=== PATIENT | male | born 1965 | race Caucasian/White ===

== ENCOUNTER → 2024-02-20 | Outpatient (CLI) | payer BC, SELFPAY ==
[2024-02-20 15:56] LABS: Absolute Lymphocyte Count 1.77 X10^3/uL (0.83-4.51); Absolute Neutrophil Count 5.7 X10^3/uL (2.0-7.7); Basophil# 0.04 X10^3/uL; Basophil% 0.5 % (0-1); Eosinophil# 0.05 X10^3/uL; Eosinophils% 0.6 % (0-5); Hematocrit 48.4 % (40-54); Hemoglobin 16.1 g/dL (13.0-16.5); Lymphocyte # 1.77 X10^3/ul (0.83-4.51); Lymphocyte % 21.8 % (19-41); Mean Corp Hgb Conc 33.3 g/dL (32-36); Mean Corpuscular Hgb 28.5 pg (27.0-32.0); Mean Corpuscular Volume 85.8 fL (80-94); Mean Platelet Vol. 10.7 fl (6.2-12.0); Monocyte# 0.56 X10^3/uL; Monocyte% 6.9 % (0-10); NRBC Flagged by Analyzer 0 % (0-5); Neutrophil # 5.68 X10^3/uL (2.7-7.7); Neutrophil % 69.8 % (47-70); Platelet Count 301 K/mm3 (150-450); RBC Distribution Width CV 13.5 % (11.6-14.6); RBC Distribution Width SD 41.6 fl (35.1-43.9); Red Blood Count 5.64 M/mm3 (4.6-6.2); White Blood Count 8.1 K/mm3 (4.4-11.0)
[2024-02-20 16:51] LABS: ALB/GLOB Ratio 1.1 RATIO (0.9-2.4); AST(SGOT) 21 U/L (15-37); Alanine Aminotransfer ALT/SGPT 35 U/L (16-61); Alkaline Phosphatase 101 U/L (45-117); Anion Gap 5 (5-15); BUN 10 mg/dL (7-18); BUN/Creat Ratio 12.6 RATIO (10-20); Calcium,Total 8.9 mg/dL (8.5-10.1); Chloride 108 mmol/L (98-107); Cholesterol 205 mg/dL (200); Creatinine, Serum 0.79 mg/dL (0.70-1.30); EST Glomerular Filtration Rate 106 mL/min (>60); Est Glom Filt Rate - Afr Amer 128 mL/min (>60); Globulin 3.5 g/dL (2.2-4.2); Glucose 93 mg/dL (74-106); High Density Lipoprotein 47 mg/dL; Protein, Total 7.5 g/dL (6.4-8.2); Sodium Level 137 mmol/L (136-145); Triglycerides 219 mg/dL; Very Low Density Lipoprotein 44 mg/dL (5-40)
[2024-02-20 20:38] LABS: Vitamin D,25 Hydroxy 10.2 ng/mL
== END | disposition home or self-care (01) ==
PROVIDERS: PCP Family Medicine; Referring Provider Family Medicine; Visit Provider Family Medicine
DX: I10 Essential (primary) hypertension (principal); E78.5 Hyperlipidemia, unspecified; R53.83 Other fatigue
CPT/HCPCS: 36415; 80053; 80061; 82306; 84403; 84443; 85025

== ENCOUNTER → 2024-05-23 | Outpatient (CLI) | payer BC, SELFPAY ==
[2024-05-23 18:33] LABS: PSA,Total - Annual Screen 2.54 ng/mL (0.02-4.00)
== END | disposition home or self-care (01) ==
LOC: MFPLAB 14:36
PROVIDERS: PCP Family Medicine; Referring Provider Family Medicine; Visit Provider Family Medicine
DX: E03.9 Hypothyroidism, unspecified (principal); Z12.5 Encounter for screening for malignant neoplasm of prostate
CPT/HCPCS: 36415; 84153; 84443; G0103

== ENCOUNTER → 2024-09-07 | Outpatient (CLI) | payer BC, SELFPAY ==
[2024-09-07 18:42] LABS: Vitamin D,25 Hydroxy 46.0 ng/mL (30-100)
--- OUTSIDE RECORDS SUMMARY | 2024-09-07 19:31 | XMS RPT_ITS | CCD ---
Author Organization [facility] Care Team Providers Care Lease Analyst Name Role Phone Kasandra Murray MD Primary Care Provider [phone] Kasandra Murray MD Attending Provider Kasandra Murray MD Referring Provider Kasandra Murray Referring Unavailable Kasandra Murray Primary Care Unavailable Kasandra Murray Attending Unavailable Kasandra Murray Referring Unavailable Kasandra Murray Primary Care Unavailable Kasandra Murray Attending Unavailable Allergies Allergy Classification Reported Allergen(s) Allergy Type Date of Onset Reaction(s) Facility (1 source) Penicillins; Translations: [PENICILLINS] Propensity to adverse reactions to drug (disorder) [facility] [place] Other [place] Repository Problems Problem Classification Problem Date Documented Da te Episodic/Chronic Essential hypertension (1 source) Essential (primary) hypertension; Translations: [Essential (primary) hypertension] Onset: 03-12-2024 Chronic Genitourinary symptoms and ill-defined conditions (2 sources) Gross hematuria; Translations: [Retention of urine, unspecified] Onset: 12-21-2017 Episodic Residual codes; unclassified (1 source) Personal history of other medical treatment; Translations: [Personal history of other medical treatment] Onset: 12-21-2017 Episodic Thyroid disorders (1 source) Hypothyroidism, unspecified; Translations: [Hypothyroidism, unspecified] Onset: 05-28-2024 Chronic Results Test Name Value Interpretation Reference Range Facility PSA, total screeningOrdered By: Kasandra Murray on 05-23-2024 Prostate Specific Antigen Screen 2.54 ng/mL 0.02-4.00 [facility] Comment on above: This test was perfor med using the [employer] tPSA method. Measured values of a patient sample can vary depending on the testing procedure used. PSA values determined on patient samples by different testing procedures cannot be used interchangeably. If there is a change in PSA assays while monitoring therapy, sequential testing should be performed to confirm baseline values. PSA,Total - Annual Screenon 05-23-2024 PSA,TOT SCREEN 2.54 ng/mL Normal 0.02-4.00 [facility] Comment on above: Order Comment: Order Date: 03/08/24 Order Info: [id number] - TSH Order Info: [id number] - PSA Result Comment: This test was performed using the [employer] tPSA method. Measured values of a patient??sample can vary depending on the testing procedure used. PSA values determined on patient samples by different testing procedures cannot be used interchangeably. If there is a change in PSA assays while monitoring therapy, sequential testing should be performed to confirm baseline values. Performed By: #### L 501.9520, L501.9910 #### [facility] [address] [place], [place], [address] TSH DL <= 0.005 mIU/L QnOrde red By: Kasandra Murray on 05-23-2024 Thyroid Stimulating Hormone (TSH) 4.110 uIU/mL 0.300-4.200 [facility] Thyroid Stim Hormone (TSH)on 05-23-2024 TSH 4.110 uIU/mL Normal 0.300-4.200 [facility] Comment on above: Order Comment: Order Date: 03/08/24 Order Info: [id number] - TSH Order Info: [id number] - PSA Performed By: #### L 501.9520, L501.9910 #### [facility] [address] [place], [place], [address] [id number] DOrdered By: Deuce Murray on 02-20-2024 Vitamin D 25-Hydroxy 10.2 ng/mL [facility] Comment on above: Vitamin D 25(OH) Sta tus Range Deficiency <20 ng/mL (50nmol/L) Insufficiency 20 - 30 ng/mL (50 - 75 nmol/L) Sufficiency 30 - 100 ng/mL (75 - 250 nmol/L) Toxicity >100 ng/mL (>250 nmol/L) Absolute neutrophil countOrd ered By: Kasandra Murray on 02-20-2024 Neutrophils (Bld) [#/Vol] 5.7 10*3/uL 2.0-7.7 [facility] Albumin to globulin ratioOrd ered By: Kasandra Murray on 02-20-2024 Albumin/Globulin [Mass ratio] 1.1 {ratio} 0.9-2.4 [facility] Basophil percentageOrdered B y: Kasandra Murray on 02-20-2024 Basophils/100 WBC (Bld) 0.5 % 0-1 [facility] Bilirubin, totalOrdered By: Kasandra Murray on 02-20-2024 Bilirubin [Mass/Vol] 0.60 mg/dL 0.20-1.00 [facility] Comment on above: For patients on eltr ombopag therapy, use of Dimension Coyote TBIL is not recommended. Blood urea nitrogen (BUN)/cr eatinine ratioOrdered By: Kasandra Murray on 02-20-2024 Urea nitrogen/Creatinine [Mass ratio] 12.6 mg/mg 10-20 [facility] CBC W/Diff, Automatedon 02-07 Absolute Lymph 1.77 X10 3/uL Normal 0.83-4.51 [facility] Comment on above: Order Comment: Order Date: 02/20/24 Order Info: [id number] - CBCD Performed By: #### L 506.1000, L500.4100, L501.9520, L100.0100, L500.4050 #### [facility] [address] [place], [address] Absolute Neut 5.7 X10 3/uL Normal 2.0-7.7 [facility] Comment on above: Order Comment: Order Date: 02/20/24 Order Info: [id number] - CBCD Performed By: #### L 506.1000, L500.4100, L501.9520, L100.0100, L500.4050 #### [facility] [address] [place], [address] Basophils/100 WBC (Bld) 0.5 % Normal 0-1 [facility] Comment on above: Order Comment: Order Date: 02/20/24 Order Info: [id number] - CBCD Performed By: #### L 506.1000, L500.4100, L501.9520, L100.0100, L500.4050 #### [facility] [address] [place], [address] Eosinophils/100 WBC (Bld) 0.6 % Normal 0-5 [facility] Comment on above: Order Comment: Order Date: 02/20/24 Order Info: [id number] - CBCD Performed By: #### L 506.1000, L500.4100, L501.9520, L100.0100, L500.4050 #### [facility] [address] [place], [address] Erythrocyte distribution width (RBC) [Ratio] 13.5 % Normal 11.6-14.6 [facility] Comment on above: Order Comment: Order Date: 02/20/24 Order Info: [id number] - CBCD Performed By: #### L 506.1000, L500.4100, L501.9520, L100.0100, L500.4050 #### [facility] [address] [place], [address] Hematocrit (Bld) [Volume fraction] 48.4 % Normal 40-54 [facility] Comment on above: Order Comment: Order Date: 02/20/24 Order Info: 0184-1 - CBCD Performed By: #### L 506.1000, L500.4100, L501.9520, L100.0100, L500.4050 #### [facility] [address] [place], [address] Hemoglobin (Bld) [Mass/Vol] 16.1 g/dL Normal 13.0-16.5 [facility] Comment on above: Order Comment: Order Date: 02/20/24 Order Info: [id number] - CBCD Performed By: #### L 506.1000, L500.4100, L501.9520, L100.0100, L500.4050 #### [facility] [address] [place], [address] IG% 0.400 Normal 0.0-0.9 [facility] Comment on above: Order Comment: Order Date: 02/20/24 Order Info: 0184-1 - CBCD Result Comment: IG% - Immature Granulocytes (promyelocytes, myelocytes and metamyelocytes) > 1% indicates that a LEFT SHIFT is Present. Performed By: #### L 506.1000, L500.4100, L501.9520, L100.0100, L500.4050 #### [facility] [address] [place], [address] Lymphocytes/100 WBC (Bld) 21.8 % Normal 19-41 [facility] Comment on above: Order Comment: Order Date: 02/20/24 Order Info: 0184-1 - CBCD Performed By: #### L 506.1000, L500.4100, L501.9520, L100.0100, L500.4050 #### [facility] [address] [place], [address] MCH (RBC) [Entitic mass] 28.5 pg Normal 27.0-32.0 [facility] Comment on above: Order Comment: Order Date: 02/20/24 Order Info: 0184-1 - CBCD Performed By: #### L 506.1000, L500.4100, L501.9520, L100.0100, L500.4050 #### [facility] [address] [place], [address] MCHC (RBC) [Mass/Vol] 33.3 g/dL Normal 32-36 [facility] Comment on above: Order Comment: Order Date: 02/20/24 Order Info: 0184-1 - CBCD Performed By: #### L 506.1000, L500.4100, L501.9520, L100.0100, L500.4050 #### [facility] [address] [place], [address] MCV (RBC) [Entitic vol] 85.8 fL Normal 80-94 [facility] Comment on above: Order Comment: Order Date: 02/20/24 Order Info: 0184-1 - CBCD Performed By: #### L 506.1000, L500.4100, L501.9520, L100.0100, L500.4050 #### [facility] [address] [place], [address] Monocytes/100 WBC (Bld) 6.9 % Normal 0-10 [facility] Comment on above: Order Comment: Order Date: 02/20/24 Order Info: 0184-1 - CBCD Performed By: #### L 506.1000, L500.4100, L501.9520, L100.0100, L500.4050 #### [facility] [address] [place], [address] Neutrophils/100 WBC (Bld) 69.8 % Normal 47-70 [facility] Comment on above: Order Comment: Order Date: 02/20/24 Order Info: 0184-1 - CBCD Performed By: #### L 506.1000, L500.4100, L501.9520, L100.0100, L500.4050 #### [facility] [address] [place], [address] Nucleated RBC (Bld) [#/Vol] 0 10*3/uL Normal 0-5 [facility] Comment on above: Order Comment: Order Date: 02/20/24 Order Info: 0184-1 - CBCD Performed By: #### L 506.1000, L500.4100, L501.9520, L100.0100, L500.4050 #### [facility] [address] [place], [address] Platelet mean volume (Bld) [Entitic vol] 10.7 fL Normal 6.2-12.0 [facility] Comment on above: Order Comment: Order Date: 02/20/24 Order Info: 0184-1 - CBCD Performed By: #### L 506.1000, L500.4100, L501.9520, L100.0100, L500.4050 #### [facility] [address] [place], [address] Platelets (Bld) [#/Vol] 301 10*3/uL Normal 150-450 [facility] Comment on above: Order Comment: Order Date: 02/20/24 Order Info: [id number] - CBCD Performed By: #### L 506.1000, L500.4100, L501.9520, L100.0100, L500.4050 #### [facility] [address] [place], [address] RBC (Bld) [#/Vol] 5.64 10*6/uL Normal 4.6-6.2 [facility] Comment on above: Order Comment: Order Date: 02/20/24 Order Info: 0184-1 - CBCD Performed By: #### L 506.1000, L500.4100, L501.9520, L100.0100, L500.4050 #### [facility] [address] [place], [address] RDW SD 41.6 fl Normal 35.1-43.9 [facility] Comment on above: Order Comment: Order Date: 02/20/24 Order Info: 0184-1 - CBCD Performed By: #### L 506.1000, L500.4100, L501.9520, L100.0100, L500.4050 #### [facility] [address] [place], [address] WBC (Bld) [#/Vol] 8.1 10*3/uL Normal 4.4-11.0 [facility] Comment on above: Order Comment: Order Date: 02/20/24 Order Info: [id number] - CBCD Performed By: #### L 506.1000, L500.4100, L501.9520, L100.0100, L500.4050 #### [facility] [address] [place], [address] Carbon dioxide measurementOr dered By: Kasandra Murray on 02-20-2024 CO2 [Moles/Vol] 25.0 mmol/L 21.0-32.0 [facility] Chloride measurementOrdered By: Kasandra Murray on 02-20-2024 Chloride [Moles/Vol] 108 mmol/L High 98-107 [facility] Comprehensive Metabolic Prof ilon 02-20-2024 Albumin [Mass/Vol] 4.0 g/dL Normal 3.2-5.0 [facility] Comment on above: Order Comment: Order Date: 02/20/24 Order Info: [id number] - CMP Order Info: [id number] - LIPID Order Info: 3 - TSH Performed By: #### L 506.1000, L500.4100, L501.9520, L100.0100, L500.4050 #### [facility] [address] [place], [address] Albumin/Globulin [Mass ratio] 1.1 {ratio} Normal 0.9-2.4 [facility] Comment on above: Order Comment: Order Date: 02/20/24 Order Info: [id number] - CMP Order Info: [id number] - LIPID Order Info: [id number] - TSH Performed By: #### L 506.1000, L500.4100, L501.9520, L100.0100, L500.4050 #### [facility] [address] [place], [address] ALK P 101 U/L Normal 45-117 [facility] Comment on above: Order Comment: Order Date: 02/20/24 Order Info: [id number] - CMP Order Info: [id number] - LIPID Order Info: [id number] - TSH Performed By: #### L 506.1000, L500.4100, L501.9520, L100.0100, L500.4050 #### [facility] [address] [place], [address] ALT [Catalytic activity/Vol] 35 U/L Normal 16-61 [facility] Comment on above: Order Comment: Order Date: 02/20/24 Order Info: 86-1 - CMP Order Info: [id number] - LIPID Order Info: 3 - TSH Performed By: #### L 506.1000, L500.4100, L501.9520, L100.0100, L500.4050 #### [facility] [address] [place], [address] AST [Catalytic activity/Vol] 21 U/L Normal 15-37 [facility] Comment on above: Order Comment: Order Date: 02/20/24 Order Info: [id number] - CMP Order Info: - LIPID Order Info: 3 - TSH Performed By: #### L 506.1000, L500.4100, L501.9520, L100.0100, L500.4050 #### [facility] [address] [place], [address] Bilirubin [Mass/Vol] 0.60 mg/dL Normal 0.20-1.00 [facility] Comment on above: Order Comment: Order Date: 02/20/24 Order Info: [id number] - CMP Order Info: - LIPID Order Info: 3 - TSH Result Comment: For patients on eltrombopag therapy, use of Dimension Coyote TBIL is not recommended. Performed By: #### L 506.1000, L500.4100, L501.9520, L100.0100, L500.4050 #### [facility] [address] [place], [address] BUN/CRE 12.6 RATIO Normal 10-20 [facility] Comment on above: Order Comment: Order Date: 02/20/24 Order Info: 785- - CMP Order Info: - LIPID Order Info: [id number] - TSH Performed By: #### L 506.1000, L500.4100, L501.9520, L100.0100, L500.4050 #### [facility] [address] [place], [address] CA,Total 8.9 mg/dL Normal 8.5-10.1 [facility] Comment on above: Order Comment: Order Date: 02/20/24 Order Info: [id number] - CMP Order Info: [id number] - LIPID Order Info: 3 - TSH Performed By: #### L 506.1000, L500.4100, L501.9520, L100.0100, L500.4050 #### [facility] [address] [place], [address] Chloride [Moles/Vol] 108 mmol/L High 98-107 [facility] Comment on above: Order Comment: Order Date: 02/20/24 Order Info: [id number] - CMP Order Info: [id number] - LIPID Order Info: [id number] - TSH Performed By: #### L 506.1000, L500.4100, L501.9520, L100.0100, L500.4050 #### [facility] [address] [place], [address] CO2 [Moles/Vol] 25.0 mmol/L Normal 21.0-32.0 [facility] Comment on above: Order Comment: Order Date: 02/20/24 Order Info: [id number] - CMP Order Info: [id number] - LIPID Order Info: [id number] - TSH Performed By: #### L 506.1000, L500.4100, L501.9520, L100.0100, L500.4050 #### [facility] [address] [place], [address] Creatinine [Mass/Vol] 0.79 mg/dL Normal 0.70-1.30 [facility] Comment on above: Order Comment: Order Date: 02/20/24 Order Info: 785- - CMP Order Info: - LIPID Order Info: [id number] - TSH Result Comment: The validity of the calculated GFR GFRAA in patients over 70 years has not been determined. Clinical correlation is essential. Performed By: #### L 506.1000, L500.4100, L501.9520, L100.0100, L500.4050 #### [facility] [address] [place], [address] EST GFR - AA 128 mL/min Normal >60 [facility] Comment on above: Order Comment: Order Date: 02/20/24 Order Info: [id number] - CMP Order Info: - LIPID Order Info: [id number] - TSH Result Comment: Afri can Filipino GFR Calc Performed By: #### L 506.1000, L500.4100, L501.9520, L100.0100, L500.4050 #### [facility] [address] [place], [address] GAP 5 Normal 5-15 [facility] Comment on above: Order Comment: Order Date: 02/20/24 Order Info: [id number] - CMP Order Info: - LIPID Order Info: [id number] - TSH Performed By: #### L 506.1000, L500.4100, L501.9520, L100.0100, L500.4050 #### [facility] [address] [place], [address] GFR/1.73 sq M.predicted among non-blacks MDRD (S/P/Bld) [Vol rate/Area] 106 mL/min/{1.73_m2} Normal >60 [facility] Comment on above: Order Comment: Order Date: 02/20/24 Order Info: 0786 - CMP Order Info: [id number] - LIPID Order Info: 3 - TSH Result Comment: Non- GFR Calc Performed By: #### L 506.1000, L500.4100, L501.9520, L100.0100, L500.4050 #### [facility] [address] [place], [address] Globulin (S) [Mass/Vol] 3.5 g/dL Normal 2.2-4.2 [facility] Comment on above: Order Comment: Order Date: 02/20/24 Order Info: 785- - CMP Order Info: [id number] - LIPID Order Info: 3 - TSH Performed By: #### L 506.1000, L500.4100, L501.9520, L100.0100, L500.4050 #### [facility] [address] [place], [address] Glucose [Mass/Vol] 93 mg/dL Normal 74-106 [facility] Comment on above: Order Comment: Order Date: 02/20/24 Order Info: [id number] - CMP Order Info: [id number] - LIPID Order Info: 3 - TSH Performed By: #### L 506.1000, L500.4100, L501.9520, L100.0100, L500.4050 #### [facility] [address] [place], [address] Potassium [Moles/Vol] 4.0 mmol/L Normal 3.5-5.1 [facility] Comment on above: Order Comment: Order Date: 02/20/24 Order Info: 0786 - CMP Order Info: [id number] - LIPID Order Info: 3 - TSH Performed By: #### L 506.1000, L500.4100, L501.9520, L100.0100, L500.4050 #### [facility] [address] [place], [address] Sodium [Moles/Vol] 137 mmol/L Normal 136-145 [facility] Comment on above: Order Comment: Order Date: 02/20/24 Order Info: [id number]- - CMP Order Info: [id number] - LIPID Order Info: 3 - TSH Performed By: #### L 506.1000, L500.4100, L501.9520, L100.0100, L500.4050 #### [facility] [address] [place], [address] T PROT 7.5 g/dL Normal 6.4-8.2 [facility] Comment on above: Order Comment: Order Date: 02/20/24 Order Info: [id number] - CMP Order Info: [id number] - LIPID Order Info: [id number] - TSH Performed By: #### L 506.1000, L500.4100, L501.9520, L100.0100, L500.4050 #### [facility] [address] [place], [address] Urea nitrogen [Mass/Vol] 10 mg/dL Normal 7-18 [facility] Comment on above: Order Comment: Order Date: 02/20/24 Order Info: [id number] - CMP Order Info: [id number] - LIPID Order Info: [id number] - TSH Performed By: #### L 506.1000, L500.4100, L501.9520, L100.0100, L500.4050 #### [facility] [address] [place], [address] Eosinophil percentageOrdered By: Kasandra Murray on 02-20-2024 Eosinophils/100 WBC (Bld) 0.6 % 0-5 [facility] Erythrocyte distribution wid th (RBC) [Ratio]Ordered By: Kasandra Murray on 02-20-2024 Erythrocyte distribution width (RBC) [Entitic vol] 41.6 fL 35.1-43.9 [facility] Erythrocyte distribution wid th ratioOrdered By: Kasandra Murray on 02-20-2024 Erythrocyte distribution width (RBC) [Ratio] 13.5 % 11.6-14.6 [facility] Estimated glomerular filtrat ion rate (GFR) AmericanOrdered By: Kasandra Murray on 02-20-2024 Estimated GFR (MDRD) Amer 128 mL/min >60 [facility] Comment on above: GFR Calc Glomerular filtration rate ( GFR) estimationOrdered By: Kasandra Murray on 02-20-2024 Estimated GFR (MDRD) Non-Af Amer 106 mL/min >60 [facility] Comment on above: Non- GFR Calc Glucose measurementOrdered B y: Kasandra Murray on 02-20-2024 Glucose [Mass/Vol] 93 mg/dL 74-106 [facility] Hematocrit Auto (Bld) [Volum e fraction]Ordered By: Kasandra Murray on 02-20-2024 Hematocrit (Bld) [Volume fraction] 48.4 % 40-54 [facility] Hemoglobin measurementOrdere d By: Kasandra Murray on 02-20-2024 Hemoglobin (Bld) [Mass/Vol] 16.1 g/dL 13.0-16.5 [facility] High density lipoprotein (HD L) measurementOrdered By: Kasandra Murray on 02-20-2024 Cholesterol in HDL [Mass/Vol] 47 mg/dL >40 [facility] Comment on above: The drugs N-Acetylcy steine and Metamizole may falsely depress this assay. Reference Range HDL <40 mg/dL Low HDL Cholesterol HDL >or= 60 mg/dL High HDL Cholesterol Immature granulocytes/100 WB C Auto (Bld)Ordered By: Kasandra Murray on 02-20-2024 Immature granulocytes/100 WBC (Bld) 0.400 % 0.0-0.9 [facility] Comment on above: IG% - Immature Granu locytes (promyelocytes, myelocytes and metamyelocytes) > 1% indicates that a LEFT SHIFT is Present. Laboratory - Chemistry and C hemistry - challengeOrdered By: Kasandra Murray on 02-20-2024 AST [Catalytic activity/Vol] 21 U/L 15-37 [facility] Lipid Profileon 02-20-2024 Cholesterol [Mass/Vol] 205 mg/dL High 200 [facility] Comment on above: Order Comment: Order Date: 02/20/24 Order Info: [id number] - CMP Order Info: [id number] - LIPID Order Info: [id number] - TSH Result Comment: <200 mg/dL Desirable 200-240 mg/dL Borderline >240 mg/dL High Risk Performed By: #### L 506.1000, L500.4100, L501.9520, L100.0100, L500.4050 #### [facility] [address] [place], [address] Cholesterol in HDL [Mass/Vol] 47 mg/dL Normal [facility] Comment on above: Order Comment: Order Date: 02/20/24 Order Info: [id number] - CMP Order Info: [id number] - LIPID Order Info: [id number] - TSH Result Comment: The drugs N-Acetylcysteine and Metamizole may falsely depress this assay. Reference Range HDL <40 mg/dL Low HDL Cholesterol HDL >or= 60 mg/dL High HDL Cholesterol Performed By: #### L 506.1000, L500.4100, L501.9520, L100.0100, L500.4050 #### [facility] [address] [place], [address] Cholesterol in LDL [Mass/Vol] 114 mg/dL Normal 0-130 [facility] Comment on above: Order Comment: Order Date: 02/20/24 Order Info: [id number] - CMP Order Info: [id number] - LIPID Order Info: [id number] - TSH Performed By: #### L 506.1000, L500.4100, L501.9520, L100.0100, L500.4050 #### [facility] [address] [place], [address] Cholesterol in VLDL [Mass/Vol] 44 mg/dL High 5-40 [facility] Comment on above: Order Comment: Order Date: 02/20/24 Order Info: [id number] - CMP Order Info: [id number] - LIPID Order Info: [id number] - TSH Performed By: #### L 506.1000, L500.4100, L501.9520, L100.0100, L500.4050 #### [facility] [facility] [address] [place], [address] Triglyceride [Mass/Vol] 219 mg/dL High [facility] Comment on above: Order Comment: Order Date: 02/20/24 Order Info: [id number] - CMP Order Info: [id number] - LIPID Order Info: [id number] - TSH Result Comment: The drugs N-Acetylcysteine and Metamizole may falsely depress this assay. Serum Triglycerides Reference Interval Normal <150 mg/dL Borderline high 150 - 199 mg/dL High 200 - 499 mg/dL Very High > or = 500 mg/dL Performed By: #### L 506.1000, L500.4100, L501.9520, L100.0100, L500.4050 #### [facility] [address] [place], [address] Low density lipoprotein (LDL ) cholesterol measurementOrdered By: Kasandra Murray on 02-20-2024 Cholesterol in LDL [Mass/Vol] 114 mg/dL 0-130 [facility] Lymphocytes Auto (Unsp spec) [#/Vol]Ordered By: Kasandra Murray on 02-20-2024 Lymphocytes (Bld) [#/Vol] 1.77 10*3/uL 0.83-4.51 [facility] Lymphocytes/100 WBC Auto (Un sp spec)Ordered By: Kasandra Murray on 02-20-2024 Lymphocytes/100 WBC (Bld) 21.8 % 19-41 [facility] MCV (mean corpuscular volume ) determinationOrdered By: Kasandra Murray on 02-20-2024 MCV (RBC) [Entitic vol] 85.8 fL 80-94 [facility] Mean corpuscular hemoglobin (MCH) determinationOrdered By: Kasandra Murray on 02-20-2024 MCH (RBC) [Entitic mass] 28.5 pg 27.0-32.0 [facility] Mean corpuscular hemoglobin concentration (MCHC) determinationOrdered By: Kasandra Murray on 02-20-2024 MCHC (RBC) [Mass/Vol] 33.3 g/dL 32-36 [facility] Mean platelet volume determi nationOrdered By: Kasandra Murray on 02-20-2024 Platelet mean volume (Bld) [Entitic vol] 10.7 fL 6.2-12.0 [facility] Monocyte percentageOrdered B y: Kasandra Murray on 02-20-2024 Monocytes/100 WBC (Bld) 6.9 % 0-10 [facility] Neutrophil percentageOrdered By: Kasandra Murray on 02-20-2024 Neutrophils/100 WBC (Bld) 69.8 % 47-70 [facility] Nucleated red blood cell per centageOrdered By: Kasandra Murray on 02-20-2024 Nucleated RBC/100 WBC (Bld) [Ratio] 0 % 0-5 [facility] Platelet countOrdered By: Radha Murray on 02-20-2024 Platelets (Bld) [#/Vol] 301 10*3/uL 150-450 [facility] Potassium measurementOrdered By: Kasandra Murray on 02-20-2024 Potassium [Moles/Vol] 4.0 mmol/L 3.5-5.1 [facility] RBC Auto (Bld) [#/Vol]Ordere d By: Kasandra Murray on 02-20-2024 RBC (Bld) [#/Vol] 5.64 10*6/uL 4.6-6.2 [facility] Serum anion gap measurementO rdered By: Kasandra Murray on 02-20-2024 Anion gap [Moles/Vol] 5 mmol/L 5-15 [facility] Serum globulin measurementOr dered By: Kasandra Murray on 02-20-2024 Globulin (S) [Mass/Vol] 3.5 g/dL 2.2-4.2 [facility] Serum or plasma alanine ramirez otransferase (ALT) measurementOrdered By: Kasandra Murray on 02-20-2024 ALT [Catalytic activity/Vol] 35 U/L 16-61 [facility] Serum or plasma albumin elisa urement (mass/volume)Ordered By: Kasandra Murray on 02-20-2024 Albumin [Mass/Vol] 4.0 g/dL 3.2-5.0 [facility] Serum or plasma alkaline caroline sphatase measurementOrdered By: Kasandra Murray on 02-20-2024 ALP [Catalytic activity/Vol] 101 U/L 45-117 [facility] Serum or plasma calcium elisa urement (mass/volume)Ordered By: Kasandra Murray on 02-20-2024 Calcium [Mass/Vol] 8.9 mg/dL 8.5-10.1 [facility] Serum or plasma cholesterol measurement (mass/volume)Ordered By: Kasandra Murray on 02-20-2024 Cholesterol [Mass/Vol] 205 mg/dL High <200 [facility] Comment on above: <200 mg/dL Desirable 200-240 mg/dL Borderline >240 mg/dL High Risk Serum or plasma creatinine m easurement (mass/volume)Ordered By: Kasandra Murray on 02-20-2024 Creatinine [Mass/Vol] 0.79 mg/dL 0.70-1.30 [facility] Comment on above: The validity of the calculated GFR & GFRAA in patients over 70 years has not been determined. Clinical correlation is essential. Serum or plasma urea nitroge n measurement (mass/volume)Ordered By: Kasandra Murray on 02-20-2024 Urea nitrogen [Mass/Vol] 10 mg/dL 7-18 [facility] Sodium levelOrdered By: Charlotte Murray on 02-20-2024 Sodium [Moles/Vol] 137 mmol/L 136-145 [facility] TSH QnOrdered By: Kasandra herr on 02-20-2024 Thyroid Stimulating Hormone (TSH) 13.000 uIU/mL High 0.358-3.740 [facility] Testosterone, Serum Totalon 02-20-2024 Testosterone [Mass/Vol] 472.95 ng/dL Normal [facility] Comment on above: Order Comment: Order Date: 02/20/24 Order Info: [id number] - VITD25 Order Info: [id number] - KATHRYN Result Comment: CENT RAL 90% REFERENCE RANGES MALE AGE <50 197.44 - 669.58 ng/dL MALE AGE > or = 50 187.72 - 684.19 ng/dL FEMALE AGE <50 8.38 - 35.01 ng/dL FEMALE AGE > or = 50 <7.00 - 35.92 ng/dL Effective as of 09/02/20 Performed By: #### L 509.3000 #### [facility] [address] [place], [address] Testosterone, totalOrdered B y: Kasandra Murray on 02-20-2024 Testosterone [Mass/Vol] 472.95 ng/dL [facility] Comment on above: CENTRAL 90% REFERENC E RANGES MALE AGE <50 197.44 - 669.58 ng/dL MALE AGE > or = 50 187.72 - 684.19 ng/dL FEMALE AGE <50 8.38 - 35.01 ng/dL FEMALE AGE > or = 50 <7.00 - 35.92 ng/dL Effective as of 09/02/20 Thyroid Stim Hormone (TSH)on 02-20-2024 TSH 13.000 uIU/mL High 0.358-3.740 [facility] Comment on above: Order Comment: Order Date: 02/20/24 Order Info: [id number] - CMP Order Info: [id number] - LIPID Order Info: [id number] - TSH Performed By: #### L 506.1000, L500.4100, L501.9520, L100.0100, L500.4050 #### [facility] [address] [place] [address]. [place], [place], [address] Total proteinOrdered By: Rachele Murray on 02-20-2024 Protein [Mass/Vol] 7.5 g/dL 6.4-8.2 [facility] Triglycerides measurementOrd ered By: Kasandra Murray on 02-20-2024 Triglyceride [Mass/Vol] 219 mg/dL High <199 [facility] Comment on above: The drugs N-Acetylcy steine and Metamizole may falsely depress this assay.Serum Triglycerides Reference Interval Normal <150 mg/dL Borderline high 150 - 199 mg/dL High 200 - 499 mg/dL Very High > or = 500 mg/dL Very low density lipoprotein (VLDL) cholesterol measurementOrdered By: Kasandra Murray on 02-20-2024 VLDL Cholesterol 44 mg/dL High 5-40 [facility] Vitamin D,25 Hydroxyon 02-19 Vitamin D 25-OH 10.2 ng/mL Normal [facility] Comment on above: Order Comment: Order Date: 02/20/24 Order Info: [id number] - VITD25 Order Info: [id number] - KATHRYN Result Comment: Mi min D 25(OH) Status Range Deficiency <20 ng/mL (50nmol/L) Insufficiency 20 - 30 ng/mL (50 - 75 nmol/L) Sufficiency 30 - 100 ng/mL (75 - 250 nmol/L) Toxicity >100 ng/mL (>250 nmol/L) Performed By: #### L 506.1000, L500.4100, L501.9520, L100.0100, L500.4050 #### [facility] [place], [address] White blood cell (WBC) count Ordered By: Kasandra Murray on 02-20-2024 WBC (Bld) [#/Vol] 8.1 10*3/uL 4.4-11.0 [facility] CNOVon 04-08-2020 CNOV Office Visit (UROLMD ) DARIEN CHOU ([id number]) 1965 M Date Time Provider Department 04/08/20 9:15 AM SEVERO RILEY JR UROLISAD During your visit today, we recorded the following information about you: Weight Height 90.3 kg 1.727 m Severo Riley Jr, MD 04/08/2020 9:09 AM Signed ESTABLISHED PATIENT OFFICE VISIT HPI Darien Chou is a 54 year old male who presents ho bph. On intermittent flomax. Uses only when travels [place] that's when symptoms flare. Also ho elevated psa. bx 2014 when was 4.5. bx neg. Gland 60cc at that time. Most recent psa 6.99. ? 10/25/17 - repeat psa 10.7. ? 11/15/17 - could not do mri due to clausterphobia. Discussed repeat bx in OR ? 12/20/17 - saturation in OR done. bx neg. Gland 74cc. psa 10.7. pvr 730cc in office. Discussed turp for multiple reasons. Would like to wait for now. ? 01/18/12 - sp standard TURP with dr. Byrnes. PVR 125cc. Off flomax. [place]. Path negative ? 07/18/18 - psa now 1.99. Off flomax. Voiding great.? ? 04/10/19 - psa 2.2. feels great 04/08/20 - psa 2.06. on no meds. No luts LAB: Creatinine Date Value Ref Range Status 12/21/2017 0.74 0.73 - 1.22 mg/dL Final PSA (ng/mL) Date Value 04/04/2020 2.06 07/13/2018 1.9 10/14/2017 10.7 06/30/2017 6.99 05/22/2015 4.35 05/04/2014 4.62 PSA Screening (ng/mL) Date Value 04/05/2019 2.2 Glucose, Urine (no units) Date Value 12/20/2017 NEGATIVE Bilirubin, Urine (no units) Date Value 12/20/2017 NEGATIVE Ketones, Urine (no units) Date Value 12/20/2017 NEGATIVE Specific [place], Ur (no units) Date Value 12/20/2017 <=1.005 pH, Urine (no units) Date Value 12/20/2017 6.0 Protein, Urine (no units) Date Value 12/20/2017 NEGATIVE Urobilinogen, Urine (EU/dL) Date Value 12/20/2017 0.2 Nitrites Urine (no units) Date Value 12/20/2017 NEGATIVE WBC, Urine (/hpf) Date Value 12/20/2017 0-2 MEDICATIONS: omeprazole magnesium (PRILOSEC OTC ORAL) Take by mouth once daily. REVIEW OF SYSTEMS Review of Systems Constitutional: Negative. Respiratory: Negative. Cardiovascular: Negative. Gastrointestinal: Negative. Genitourinary: Negative. Skin: Negative. Neurological: Negative. Psychiatric/Behavioral: Negative. 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 Bullock - Hypertrophy of prostate with urinary obstruction 12/22/2017 Added automatically from request for surgery [id number] - Insomnia 05/03/2014 - NEURALGIA INGUINAL 05/27/2005 - Smoker 05/03/2014 Since 15 yo. Has smoked as much as 1-2 PPD - Smoker 05/03/2014 Since 15 yo. Has smoked as much as 1-2 PPD. As of 07/23/2019 2 cigs a day - Snoring - Well adult exam 07/23/2019 Last done: 07/23/2019 FAMILY HISTORY Problem Relation Age of Onset - Alcohol/Drug Father 2012 - Allergies Father 2012 - Prostate Cancer Father 2012 - other (lung cancer) Father 2012 - Cancer Maternal Grandmother Lung Cancer - Heart Maternal Grandmother - Lipids Maternal Grandmother - Cervical Cancer Sister - Colon Cancer Maternal Grandfather - Diabetes Paternal Grandmother - Hypertension Mother - Stroke Paternal Grandfather SOCIAL HISTORY Social History Tobacco Use - Smoking status: Former Smoker Packs/day: 0.50 Years: 20.00 Pack years: 10.00 Types: Cigarettes - Smokeless tobacco: Never Used - Tobacco comment: 08/30/19 pt states smoking socially Substance Use Topics - Alcohol use: No - Drug use: No PHYSICAL EXAMINATION General appearance: Well appearing, alert, in no acute distress and well-hydrated, well nourished Skin: Skin color, texture, turgor normal, no suspicious rashes or lesions Respiratory:+ effort Cardiovascular: Not examined GI: Normal abdominal exam, Abdomen soft, non-tender. No masses, organomegaly Musculoskeletal: Negative Neuro: Negative Genitourinary: not examined Impression: (N40.1, N13.8) BPH with obstruction/lower urinary tract symptoms (primary encounter diagnosis) (R97.20) Elevated prostate specific antigen (PSA) Plan: Prn Fu with pcp rec yearly psa screening Severo Riley Jr, MD 04/08/2020 Referring Provider: SEVERO RILEY JR [[id number]] Allergies As of Date: 04/08/2020 Noted Allergy Reaction PENICILLINS 04/22/2005 16 - Unknown Date Reviewed: 04/08/2020 Reviewed by: Severo Riley Jr. - Fully Assessed Reason for Visit: Elevated PSA [3906] Primary Visit Diagnosis:BPH with obstruction/lower urinary tra (more content not included)... Normal [facility] Luis Alberto 04-07-2020 CNPN Telephone (FAMPWS) PINGDARIEN LI ([id number]) 1965 M Date Time Provider Department 04/07/20 APRIL SHARP) [facility] During your visit today, we recorded the following information about you: APRIL SHARP PA-C 04/07/2020 10:14 AM Signed Please let patient know that his labs show elevated cholesterol. His LDL is 157 with goal under 130. Total 245 with goal under 200. And trigs 219 with goal under 150. hgb a1c is normal. Recommend on working on diet to lower cholesterol please focus on: - More lean meats like chicken, fish, turkey rather than red meats - Less carbs and when having carbs, more complex carbs such as beans, wheat or multigrain and brown rice - more vegetables - healthy fats such as olive oil, nuts, avocados ? Ronen Suarez LPN 04/07/2020 11:08 AM Signed Left message ofr pt that copy of April's message regarding results and diet instructions would be sent to him via My Chart. Message has been sent via My Chart. Ronen Suarez LPN Allergies As of Date: 04/07/2020 Noted Allergy Reaction PENICILLINS 04/22/2005 16 - Unknown Date Reviewed: 09/06/2019 Reviewed by: Fawn Fong - Fully Assessed Reason for Visit: Results [95] Visit Diagnosis:Hyperlipidemi a, mixed [E78.2] Prescriptions as of 04/07/2020 Sig: PRILOSEC OTC ORAL Take by mouth once daily. Problem List As Of Date 04/07/2020 Noted Resolved BENIGN PROSTATIC HYPERTROPHY ENLARGEMENT( with *04/22/2005 11/30/2017 Insomnia [G47.00] 05/03/2014 Smoker [F17.200] 05/03/2014 More... Encounter for lipid screening for cardiovascula* 5 Screening for diabetes mellitus (DM) [Z13.1] 05/03/2014 Colon cancer screening [Z12.11] 05/03/2014 Prostate cancer screening [Z12.5] 05/03/2014 11/30/2017 Elevated PSA [R97.20] 05/27/2014 11/30/2017 Lower urinary tract symptoms (LUTS) [R39.9] 05/27/2014 11/30/2017 At risk of melanoma due to finding dysplastic n*05/28/2014 Dysplastic nevus [D23.9] 05/28/2014 More... Benign non-nodular prostatic hyperplasia with l*05/21/2015 11/30/2017 Libido, decreased [R68.82] 05/21/2015 Elevated prostate specific antigen (PSA) [R97.2*11/16/2017 More... Hypertrophy of prostate with urinary obstructio*12/22/2017 More... More... BPH with urinary obstruction [N40.1, N13.8] 12/27/2017 Well adult exam [Z00.00] 07/23/2019 More... Hyperlipidemia, mixed [E78.2] 04/07/2020 Encounter Status:Closed by RONEN SUAREZ LPN on 04/07/20 Normal [facility] HGB A1Con 04-04-2020 Average glucose Estimated from glycated hemoglobin mass conc (Bld) 91 mg/dL Normal [facility] Comment on above: Order Comment: Speci men Type: BLOOD SPECIMEN Result Comment: eAG: (Estimated average glucose) is a calculated value from HgbA1c and is sales promotion representative of the average blood glucose level in the last 2-3 month period. Performed By: #### H BA1C #### [facility] CLIA [id number] [address] [place] [address] HbA1c (Bld) [Mass fraction] 4.8 % Normal 4.3-5.6 [facility] Comment on above: Order Comment: Speci men Type: BLOOD SPECIMEN Performed By: #### H BA1C #### [facility] CLIA [id number] [address] [place] [address] LIPID PANEL, NONFASTINGon Cholesterol [Mass/Vol] 245 mg/dL High <200 [facility] Comment on above: Order Comment: Speci men Type: BLOOD SPECIMEN Result Comment: <200 mg/dL, Desirable 200-239 mg/dL, Borderline high >239 mg/dL, High Performed By: #### L IPNF #### [facility] CLIA [id number] [address] [place] [address] [place] Cholesterol in LDL/Cholesterol in HDL [Mass ratio] 3.57 mg/dL High <2.54 [facility] Comment on above: Order Comment: Speci men Type: BLOOD SPECIMEN Result Comment: Refe rence: 1. National Cholesterol Education Program ATP III Guideline At-A-Glance Quick Desk Reference: National Heart, Lung, and Blood [place]. National Institutes of Health. 2001: NIH Publication No. 01-3305. 2. An International Atherosclerosis Society position paper: global recommendations for the management of dyslipidemia: executive summary, Atherosclerosis. 2014: 232(2):410-413. Performed By: #### L IPNF #### [facility] CLIA [id number] [address] [place] [address] [facility] Cholesterol.total/Ainsley sterol in HDL [Mass ratio] 5.57 mg/dL High <5.10 [facility] Comment on above: Order Comment: Speci men Type: BLOOD SPECIMEN Performed By: #### L IPNF #### [facility] CLIA [id number] [address] [place] [address] [facility] HDL CHOLESTEROL, NF 44 mg/dL Normal >39 [facility] Comment on above: Order Comment: Speci men Type: BLOOD SPECIMEN Result Comment: 40-5 9 mg/dL, Acceptable >59 mg/dL, High: Negative risk factor for coronary heart disease <40 mg/dL, Low: Positive risk factor for coronary heart disease Performed By: #### L IPNF #### [facility] CLIA [id number] [address] [place] [address] [facility] LDL CHOLESTEROL, NF 157 mg/dL High <100 [facility] Comment on above: Order Comment: Speci men Type: BLOOD SPECIMEN Result Comment: <100 mg/dL, Optimal 100-129 mg/dL, Near optimal/above optimal 130-159 mg/dL, Borderline high 160-189 mg/dL, High >189 mg/dL, Very high Secondary prevention optimal LDL Cholesterol levels are recommended to be < 70 mg/dL Performed By: #### L IPNF #### [facility] CLIA [id number] [address] [place] [address] [facility] NON HDL CHOL, NF 201 mg/dL High <130 [facility] Comment on above: Order Comment: Speci men Type: BLOOD SPECIMEN Result Comment: <130 mg/dL, Optimal 130-159 mg/dL, Near optimal/above optimal 160-189 mg/dL, Borderline high 190-219 mg/dL, High >219 mg/dL, Very high Secondary prevention optimal non HDL Cholesterol levels are recommended to be <100 mg/dL Performed By: #### L IPNF #### [facility] CLIA [id number] [address] [place] [address] [facility] TRIGLYCERIDES, NF 219 mg/dL High <150 [facility] Comment on above: Order Comment: Speci men Type: BLOOD SPECIMEN Result Comment: <150 mg/dL, Normal 150-199 mg/dL, Borderline high 200-499 mg/dL, High >499 mg/dL, Very high Performed By: #### L IPNF #### [facility] CLIA [id number] [address] [place] [address] [facility] VLDL CHOLESTEROL, NF 44 mg/dL High <30 [facility] Comment on above: Order Comment: Speci men Type: BLOOD SPECIMEN Performed By: #### L IPNF #### [facility] CLIA [id number] [address] [place] [address] [facility] PSA SerPl-mCncon 04-04-2020 Prostate specific Ag [Mass/Vol] 2.06 ng/mL Normal 0.00-3.90 [facility] Comment on above: Order Comment: Speci men Type: BLOOD SPECIMEN Result Comment: Toñ[place] l PSA test methodology used is the Direct Chemiluminometric technology. Performed By: #### 2 857-1 #### [facility] CLIA [id number] [address] [place] [address] PSA Screenon 04-05-2019 PSA Screen 2.2 ng/mL Normal 0.0-3.9 [facility] Comment on above: Performed By: #### L PSAS #### [facility] [address] [place] [address] Basic Metabolic Panlon 12-21 Anion gap 3 molar conc 10 mmol/L Normal 9-18 [facility] Comment on above: Performed By: #### C BCDIF, BMP ####[facility] [address] [place] [address] Calcium mass conc 9.5 mg/dL Normal 8.5-10.2 [facility] Comment on above: Performed By: #### C BCDIF, BMP ####[facility] [address] [place] [address] Chloride molar conc 102 mmol/L Normal 97-105 [facility] Comment on above: Performed By: #### C BCDIF, BMP ####[facility] [address] [place] [address] CO2 molar conc 26 mmol/L Normal 22-30 [facility] Comment on above: Performed By: #### C BCDIF, BMP ####[facility] [address] [place] [address] Creatinine mass conc 0.74 mg/dL Normal 0.73-1.22 [facility] Comment on above: Performed By: #### C BCDIF, BMP ####[facility] [address] [place] [address] eGFR- Amer. >60 Normal [facility] Comment on above: Performed By: #### C BCDIF, BMP ####[facility] [address] [place] [address] GFR/1.73 sq M predicted among non-blacks MDRD vol rate/area (S/P/Bld) mL/min/{1.73_m2} Normal [facility] Comment on above: Result Comment: eGFR (Estimated GFR) Units of measure: mL/min/1.73 meters squaredeGFR is derived from the reexpressed MDRD Study equation using the following parameters: serum creatinine, age, gender and race. The creatinine assay has been calibrated to be traceable to IDMS.An eGFR <60 mL/min/1.73m2 for >3 months is consistent with chronic kidney disease. Refer to KDOQI guidelines for clinical interpretation.In patients with unstable renal function, e.g. those with acute kidney injury, the eGFR may not accurately reflect actual GFR. Performed By: #### C LEONARD LU ####[facility] [address] [place] [address] Glucose mass conc 114 mg/dL High 74-99 [facility] Comment on above: Result Comment: The [place] Diabetes [employer] (ADA) provides guidance for cutoff values for fasting glucose and random glucose. The ADA defines fasting as no caloric intake for at least 8 hours. Fasting plasma glucose results between 100 to 125 mg/dL indicate increased risk for diabetes (prediabetes).Fasting plasma glucose results greater than or equal to 126 mg/dL meet the criteria for diagnosis of diabetes. In the absence of unequivocal hyperglycemia, results should be confirmed by repeat testing. In a patient with classic symptoms of hyperglycemia or hyperglycemic crisis, random plasma glucose results greater than or equal to 200 mg/dL meet the criteria for diagnosis of diabetes.Reference: Standards of Medical Care in Diabetes 2016, [place] [employer]. Diabetes Care. 2016.39(Suppl 1). Performed By: #### C LEONARD LU ####[facility] [address] [place] [address] Potassium molar conc 3.7 mmol/L Normal 3.7-5.1 [facility] Comment on above: Performed By: #### C LEONARD LU ####[facility] [place] [address] Sodium molar conc 138 mmol/L Normal 136-144 [facility] Comment on above: Performed By: #### C LEONARD LU ####[place] [address] Urea nitrogen mass conc 15 mg/dL Normal 9-24 [facility] Comment on above: Performed By: #### C LEONARD LU ####[facility] [address] [place] [address] CBC and Differentialon 12-21 Abs Baso 0.03 k/uL Normal <0.11 [facility] Comment on above: Performed By: #### C BCDIF BMP ####[place] [address] Abs [place] 0.85 k/uL Normal <0.87 [facility] Comment on above: Performed By: #### C BCDIF, BMP ####[place] [address] Abs Neut 5.40 k/uL Normal 1.45-7.50 [facility] Comment on above: Performed By: #### C BCARACELYF, BMP ####[place] [address] Basophils/100 WBC Auto (Bld) 0.4 % Normal [facility] Comment on above: Performed By: #### C TABITHA BMP ####[place] [address] Eosinophils Auto #/vol (Bld) 0.13 10*3/uL Normal <0.46 [facility] Comment on above: Performed By: #### C BCDIF, BMP ####[address] [place] [address] Eosinophils/100 WBC Auto (Bld) 1.6 % Normal [facility] Comment on above: Performed By: #### C BCHOUSTON, BMP ####[place] [address] Erythrocyte distribution width Auto Ratio (RBC) 13.5 % Normal 11.5-15.0 [facility] [place] Comment on above: Performed By: #### C BCDIF, BMP ####[place] [address] Hematocrit Auto Volume Fraction (Bld) 45.0 % Normal 39.0-51.0 [facility] [place] Comment on above: Performed By: #### C BCDIF, BMP ####[place] [address] Hemoglobin mass conc (Bld) 15.7 g/dL Normal 13.0-17.0 [facility] Comment on above: Performed By: #### C BCDIF, BMP ####[place] [address] Lymphocytes Auto #/vol (Bld) 1.88 10*3/uL Normal 1.00-4.00 [facility] [place] Comment on above: Performed By: #### C BCDIMaile, BMP ####[place] [address] Lymphocytes/100 WBC Auto (Bld) 22.7 % Normal [facility] Comment on above: Performed By: #### C BCDIF, BMP ####[place] [address] MCH Auto Entitic mass (RBC) 29.2 pG Normal 26.0-34.0 [facility] [place] Comment on above: Performed By: #### C TABITHA, BMP ####[place] [address] MCHC Auto mass conc (RBC) 34.9 g/dL Normal 30.5-36.0 [facility] [place] Comment on above: Performed By: #### C BCDIMaile, BMP ####[place] [address] MCV Auto Entitic volume (RBC) 83.8 fL Normal 80.0-100.0 [facility] [place] Comment on above: Performed By: #### C BCDIMaile, BMP ####[place] [address] Monocytes/100 WBC Auto (Bld) 10.3 % Normal [facility] [place] Comment on above: Performed By: #### C BCDIF, BMP ####[place] [address] Neutrophils/100 WBC Auto (Bld) 65.0 % Normal [facility] [place] Comment on above: Performed By: #### C BCDIF, BMP ####[place] [address] Platelet mean volume Auto Entitic volume (Bld) 10.4 fL Normal 9.0-12.7 [facility] [place] Comment on above: Performed By: #### C BCDIF, BMP ####[place] [address] Platelets Auto #/vol (Bld) 215 10*3/uL Normal 150-400 [facility] [place] Comment on above: Performed By: #### C BCDIF, BMP ####[facility] [id number] [address] RBC Auto #/vol (Bld) 5.37 10*6/uL Normal 4.20-6.00 [facility] Comment on above: Performed By: #### C BCDIF, BMP ####[facility] [place] [id number] [address] WBC Auto #/vol (Bld) 8.29 10*3/uL Normal 3.70-11.00 [facility] Comment on above: Performed By: #### C BCDIF, BMP ####[facility] [place] [id number] [address] ED NOTEon 12-21-2017 ED NOTE HNO ID: [id number]: Cassie Dudley) Ashok Crumpice: NursingAuthor Type: Registered NurseType: ED NotesFiled: 12/21/2017 2:25 AMNote Text: PT discharged home via MD orders. OK per Dr to leave mc bag on forsleep, instructed on how to switch to leg bag. Pt verbalizedunderstanding . [facility] ED NOTE HNO ID: [id number] Author: Cassie Dudley) MELVIN Crump Service: Nursing Author Type: Registered Nurse Type: ED Notes Filed: 12/21/2017 2:21 AM Note Text: Dr Funes at bedside to discuss results and plan of care with pt. [facility] ED NOTE HNO ID: [id number]: Cassie Dudley) Ashok Crumpice: NursingAuthor Type: Registered NurseType: ED NotesFiled: 12/21/2017 1:14 AMNote Text: Pt mc irrigated with 400 ml saline, with 400ml return of clear fluid.Initially fluid returned slightly pink. No clots noted. Mariah PAC notified. [facility] ED NOTE HNO ID: [id number]: Ashok Pna Rnice: NursingAuthor Type: Registered NurseType: ED NotesFiled: 12/21/2017 1:18 AMNote Text: Pt states he had procedure on prostate 3 weeks ago. Was following up withurology yesterday (12/20). States he had drank a lot of water and wasunable to void. [place] [facility] and a mc was placed and he was senthome. He noticed fluid draining in bag was dark red with some clots. [facility] ED NOTE HNO ID: [id number]: Lyssa (Rn) ANGIE Fairbankservice: (none)Author Type: Registered NurseType: ED NotesFiled: 12/20/2017 11:36 PMNote Text:Had catheter placed at urologist office when he hd trouble urinating,socahteter placed. Bloody discharge now coming out of cath [facility] ED PROV NOTEon 12-21-2017 Protein mass conc HNO ID: [id number]: Wilfrido Pickeringrvice: Emergency MedicineAuthor Type: PhysicianType: ED Provider NotesFiled: 12/21/2017 9:08 PMNote Text:ED Provider NotePatient Name: Darien GoldsteinKeyN: [id number] DATE: 12/20/17HistoryPatient presents with:Hematuria: had catheter placed in Docs office today now blood comming outand painfulPatient presents stating there is large amount of blood in his Foleycatheter. States he had catheter placed today due to urinary retention.He was drinking a lot of water today to follow up with urology forenlarged prostate. Sounds like he left the urology office and could noturinate and therefore was told to go to the emergency department. Just afew hours ago and [place] they placed a Mc catheter for urianry retention. He was to follow up in the coming week with his urologist Dr. Riley. Hetakes no blood thinners. He has no abdominal pain fever or chill. Had noprior urinary concerns other than his retention.PAST MEDICAL HISTORYDiagnosis Date- BENIGN PROSTATIC HYPERTROPHY ENLARGEMENT( with urinary obst) 04/22/2005- Insomnia 05/03/2014- Smoker 05/03/2014 Since 15 yo. Has smoked as much as 1-2 PPDPAST SURGICAL HISTORYProcedure Laterality Date- LAP REPAIR INTIAL INGUINAL HERNIA 05/23/05 bilateral- PAST SURGICAL HISTORY OF prostate bx- negative- REM LESIO TRUNK,ARM,LEG 2.1-3.0CM 05/23/05FAMILY HISTORYProblem Relation Age of Onset- Alcohol/Drug Father 2012- Allergies Father 2012- Prostate Cancer Father 2012- Colon Cancer Father 2012- Cancer Maternal Grandmother Lung Cancer- Heart Maternal Grandmother- Lipids Maternal Grandmother- Cervical Cancer Sister- Colon Cancer Maternal Grandfather- Diabetes Paternal Grandmother- Hypertension Mother- Stroke Paternal GrandfatherSocial HistorySocial History Main Topics- Smoking status: Former Smoker Packs/day: 0.50 Years: 20.00 Types: Cigarettes- Smokeless tobacco: Never Used Comment: quit July 2017- Alcohol use No- Drug use: No- Sexual activity: Yes Partners: FemaleALLERGIESAllergen Reactions- PenicillinsReview of SystemsConstitutional: Negative for chills and fever.Gastrointestinal: Negative for abdominal pain, nausea and vomiting.Genitourinary: Positive for difficulty urinating and hematuria. Negativefor discharge, dysuria, flank pain, frequency, genital sores, penile pain,penile swelling, scrotal swelling and testicular pain.Skin: Negative for wound.Allergic/Immunolo gic: Negative for immunocompromised state.Neurological: Negative for weakness.Physical ExamBP 142/115 Pulse 86 Temp (Src) 98.2 (Oral) Resp 16 Ht 5' 8(1.73m) Wt 185 lb (83.9kg) SpO2 96% BMI 28.14 kg/(m2).Physical ExamConstitutional: He is oriented to person, place, and time. He appearswell-developed. No distress.HENT:Head: Normocephalic and atraumatic.Cardiovascul ar: Normal rate and regular rhythm.Pulmonary/Chest: Effort normal and breath sounds normal. No respiratorydistress.Abd ominal: Soft. There is no tenderness.Genitourinar y:Genitourinary Comments: Mc catheter in place dried blood noted to thetip of the penis. Large amount of dark blood in the catheter bag.Neurological: He is alert and oriented to person, place, and time.Skin: Skin is warm and dry. He is not diaphoretic.Nursing note and vitals reviewed.Diagnostic TestingED Labs Ordered and ReviewedBASIC METABOLIC PNL - Abnormal; Notable for the following: Result Value Ref Range Glucose 114 (*) 74 - 99 mg/dL All other components within normal limitsCBC + DIFFProceduresED Course / Clinical ImpressionClinical Impressions as of Dec 21 201Gross hematuriaFoley catheter in placeUrinary retentionMDM / Disposition / PlanUpon arrival patient appears nontoxic he is mildly hypertensive othervitals are stable. Patient's abdomen is benign. He has Mc catheter inplace to has dried blood at the tip of the penis and there is dark bloodin the Mc catheter bag. He is not take blood thinners. No systemiccomplaint. I could see [facility] placed Mc catheterfor urinary retention. He was to follow-up with his urologist at thecoming week. He had no other UTI symptoms urinalysis there per the reportdid not look infected. Complete blood count basic metabolic panel arestable here. Irrigation of the catheter has been started. Patientcurrently stable. Signed out to Dr. Funes.SIGNATURE: Ángela Stone (Cruz) Debflapcb94/14/18 0107Attending NoteI have personally performed a face to face assessment of the patient andhave reviewed the PA/SUPERVISOR [employer] REPAIR note. My abel findings include:History: Darien Chou Is a 52-year-old male comes in forhematuria. Patient saw the urologist today for elevated PSA. He had aPVR of >700, so mc was placed at [place] EDExam: pt is in NAD. HRRR. Lungs CTAB. Mc draining pink-tinged urine.Assessment/Plan are pt had manual irrigation of his mc. His urinecleared very well. He does not want to have a three-way catheter placedfor CBI. He will be discharged home to follow-up with urology as needed.Other additions or changes: NoneSignature: KATERINA Pickeringate: 12/21/2017Time: 2:02 Iman Funes [id number]/21/[id number] Normal [facility] Encounters Encounter Date Encounter Type Care Provider Facility Start: 05-23-2024 End: 05-23-2024 ambulatory Kasandra Murray MD Work Phone: [facility] Work Phone: Start: 05-23-2024 End: 05-23-[address] Kasandra Murray MD -Laboratory, [facility] Start: 05-23-2024 End: 05-23-2024 ambulatory Kasandra Murray Facility:[facility] Start: 02-20-2024 End: 02-20-[address] Kasandra Murray MD -Laboratory, [facility] Start: 02-20-2024 End: 02-20-2024 ambulatory Kasandra Terri Facility:[facility] Start: 12-21-2017 End: 12-21-2017 Emergency department patient visit [facility] Procedures Date Procedure Procedure Detail Performing Clinician Start: 07-13-2018 [object Object] Comment on above: Performed By: #### L PSA #### [place] [address] Payers Date Payer Category Payer Self-pay 2024 Unknown [id number] 2005 Private Health Insurance [facility] [id number] Unknown [id number] Unknown [id number] Social History Date Type Detail Facility Tobacco smoking stat [facility] Unknown if ever smoked [facility] Work Phone: Start: 05-28-2024 Sex Male (finding) [facility] Start: 1965 Sex Assigned At Male [facility] Progress note 04-08-2020 Note Date & Type Note Facility 04-08-2020 Note HNO ID: [id number] Author: Severo Riley Jr. Service: ? Author Type: Physician Type: Progress Notes Filed: 04/08/2020 9:09 AM Note Text: ESTABLISHED PATIENT OFFICE VISIT LOLA Chou is a 54 year old male who presents ho bph. On intermittent flomax. Uses only when travels [place] that's when symptoms flare. Also ho elevated psa. bx 2014 when was 4.5. bx neg. Gland 60cc at that time. Most recent psa 6.99. ? 10/25/17 - repeat psa 10.7. ? 11/15/17 - could not do mri due to clausterphobia. Discussed repeat bx in OR ? 12/20/17 - saturation in OR done. bx neg. Gland 74cc. psa 10.7. pvr 730cc in office. Discussed turp for multiple reasons. Would like to wait for now. ? 01/18/12 - sp standard TURP with dr. Byrnes. PVR 125cc. Off flomax. [place]. Path negative ? 07/18/18 - psa now 1.99. Off flomax. Voiding great.? ? 04/10/19 - psa 2.2. feels great 04/08/20 - psa 2.06. on no meds. No luts LAB: Creatinine Date Value Ref Range Status 12/21/2017 0.74 0.73 - 1.22 mg/dL Final PSA (ng/mL) Date Value 04/04/2020 2.06 07/13/2018 1.9 10/14/2017 10.7 06/30/2017 6.99 05/22/2015 4.35 05/04/2014 4.62 PSA Screening (ng/mL) Date Value 04/05/2019 2.2 Glucose, Urine (no units) Date Value 12/20/2017 NEGATIVE Bilirubin, Urine (no units) Date Value 12/20/2017 NEGATIVE Ketones, Urine (no units) Date Value 12/20/2017 NEGATIVE Specific [place], Ur (no units) Date Value 12/20/2017 <=1.005 pH, Urine (no units) Date Value 12/20/2017 6.0 Protein, Urine (no units) Date Value 12/20/2017 NEGATIVE Urobilinogen, Urine (EU/dL) Date Value 12/20/2017 0.2 Nitrites Urine (no units) Date Value 12/20/2017 NEGATIVE WBC, Urine (/hpf) Date Value 12/20/2017 0-2 MEDICATIONS: omeprazole magnesium (PRILOSEC OTC ORAL) Take by mouth once daily. REVIEW OF SYSTEMS Review of Systems Constitutional: Negative. Respiratory: Negative. Cardiovascular: Negative. Gastrointestinal: Negative. Genitourinary: Negative. Skin: Negative. Neurological: Negative. Psychiatric/Behavioral: Negative. 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 Bullokc - Hypertrophy of prostate with urinary obstruction 12/22/2017 Added automatically from request for surgery [id number] - Insomnia 05/03/2014 - NEURALGIA INGUINAL 05/27/2005 - Smoker 05/03/2014 Since 15 yo. Has smoked as much as 1-2 PPD - Smoker 05/03/2014 Since 15 yo. Has smoked as much as 1-2 PPD. As of 07/23/2019 2 cigs a day - Snoring - Well adult exam 07/23/2019 Last done: 07/23/2019 FAMILY HISTORY Problem Relation Age of Onset - Alcohol/Drug Father 2012 - Allergies Father 2012 - Prostate Cancer Father 2012 - other (lung cancer) Father 2012 - Cancer Maternal Grandmother Lung Cancer - Heart Maternal Grandmother - Lipids Maternal Grandmother - Cervical Cancer Sister - Colon Cancer Maternal Grandfather - Diabetes Paternal Grandmother - Hypertension Mother - Stroke Paternal Grandfather SOCIAL HISTORY Social History Tobacco Use - Smoking status: Former Smoker Packs/day: 0.50 Years: 20.00 Pack years: 10.00 Types: Cigarettes - Smokeless tobacco: Never Used - Tobacco comment: 08/30/19 pt states smoking socially Substance Use Topics - Alcohol use: No - Drug use: No PHYSICAL EXAMINATION General appearance: Well appearing, alert, in no acute distress and well-hydrated, well nourished Skin: Skin color, texture, turgor normal, no suspicious rashes or lesions Respiratory:+ effort Cardiovascular: Not examined GI: Normal abdominal exam, Abdomen soft, non-tender. No masses, organomegaly Musculoskeletal: Negative Neuro: Negative Genitourinary: not examined Impression: (N40.1, N13.8) BPH with obstruction/lower urinary tract symptoms (primary encounter diagnosis) (R97.20) Elevated prostate specific antigen (PSA) Plan: Prn Fu with pcp rec yearly psa screening Severo Riley Jr, MD 04/08/2020 [facility] Evaluation note Note Date & Type Note Facility Evaluation note No assessment information availa ble [facility] Work Phone: Reason for referral (narrative) Note Date & Type Note Facility Reason for referral (narrative) No reason for referral information available [facility] Work Phone: Summary Purpose Family History No Family History Records FoundNo Family History Records FoundNo Family History Records FoundNo Family History Records FoundNo Family History Records Found Advance Directives No Advanced Directives Records FoundNo Advanced Directives Records FoundNo Advanced Directives Records FoundNo Advanced Directives Records FoundNo Advanced Directives Records Found Additional Source Comments (unrecognized sect ion and content) No Status Records FoundNo Status Records FoundNo Status Records FoundNo Status Records FoundNo Status Records Found INFORMATION SOURCE (unrecogn ized section and content) DATE CREATED AUTHOR 01/16/2018 [facility] DATE CREATED AUTHOR AUTHOR'S ORGANIZ ATION 04/05/2019 [facility] DATE CREATED AUTHOR AUTHOR'S ORGANIZ ATION 04/08/2020 [facility] DATE CREATED AUTHOR AUTHOR'S ORGANIZ ATION 02/24/2021 [facility] DATE CREATED AUTHOR AUTHOR'S ORGANIZ ATION 05/31/2024 [facility] Care Teams (unrecognized sec tion and content) Team Status: Active Member Role Status Dates Dr. Fransico Urrutia MD Family Provider Active Kasandra Murray MD Primary Care Provider Active Team Status: Inactive Member Role Status Dates Kasandra Murray MD Primary Care Provider Active St art: February 20, 2024 End: February 20, 2024 Kasandra Murray MD Attending Provider Active Start : February 20, 2024 End: February 20, 2024 Kasandra Murray MD Referring Provider Active Start : February 20, 2024 End: February 20, 2024 Team Status: Inactive Member Role Status Dates Kasandra Murray MD Primary Care Provider Active St art: May 23, 2024 End: May 23, 2024 Kasandra Murray MD Attending Provider Active Start : May 23, 2024 End: May 23, 2024 Kasandra Murray MD Referring Provider Active Start : May 23, 2024 End: May 23, 2024 Goals (unrecognized section and content) Goals may be documented in a n alternate section FOR RECORDS PERTAINING TO PATIENTS WHO ARE OR HAVE BEEN ENROLLED IN A CHEMICAL DEPENDENCY/SUBSTANCEABUSE PROGRAM, SOME INFORMATION MAY BE OMITTED. This clinical summary was aggregated from multiple sources. Caution should be exercised in using it in the provision of clinical care. This summary normalizes information from multiple sources, and as a consequence, information in this document may materially change the coding, format and clinical context of patient data. In addition, data may be omitted in some cases. CLINICAL DECISIONS SHOULD BE BASED ON THE PRIMARY CLINICAL RECORDS. [facility] [employer] [facility]. provides no warranty or guarantee of the accuracy or completeness of information in this document.
== END | disposition home or self-care (01) ==
LOC: MFPLAB 15:45
PROVIDERS: PCP Family Medicine; Visit Provider Family Medicine
DX: E55.9 Vitamin D deficiency, unspecified (principal); E03.9 Hypothyroidism, unspecified
CPT/HCPCS: 36415; 82306; 84443

== ENCOUNTER → 2024-11-01 | Outpatient (CLI) | payer BC, SELFPAY ==
--- NOTE | 2024-11-01 11:54 | US_ITS ---
PROCEDURE: THYROID 11/01/2024 REASON FOR EXAM: LUMP IN THROAT TECHNIQUE: Procedure Code: USTHY Modality: US Procedure: THYROID COMPARISON: None FINDINGS: Right thyroid lobe size: 4.9 x 2.4 x 2.1 cm Left thyroid lobe size: 4.1 x 2.1 x 1.7 cm Isthmus: 0.5 cm Background parenchymal echotexture is heterogeneous. Nodules: 1. Lobe: Right, Location: Mid, Size: 6 x 5 x 5 mm cm, Stability: N/A Composition: Solid or almost completely solid (+2) Echogenicity: Hyperechoic (+1) Margin: Smooth (+0) Shape: Taller than wide (+3) Echogenic Foci: None (+0) TI-RADS: <2 = TR 1 * 2 = TR 2 * 3 = TR 3 * 4-6 = TR 4 * >6 = TR 5 2. Lobe: Left, Location: Medial, Size: 5 x 4 x 4 mm cm, Stability: N/A Composition: Solid or almost completely solid (+2) Echogenicity: Hyperechoic (+1) Margin: Smooth (+0) Shape: Wider than tall (+0) Echogenic Foci: None (+0) TI-RADS: <2 = TR 1 * 2 = TR 2 * 3 = TR 3 * 4-6 = TR 4 * >6 = TR 5 US/Thyroid IMPRESSION: Heterogeneous echotexture is noted within the thyroid gland which may be associ ated with Papa's disease or Graves disease. Benign-appearing thyroid nodules are seen bilaterally. The technologist made a note that during scanning bilateral cervical prominent lymph nodes were visualized. If clinically indicated, targeted ultrasound could be performed for further evaluation. RECOMMENDATION: Based on most suspicious nodule. Nodule size = largest diameter Only evaluate nodule if =>5 mm. Growth > 20% in 2 dimensions = worsening. Follow up to 4 nodules. Recommend biopsy for no more than 2 nodules. Reading Location: [id number]
== END | disposition home or self-care (01) ==
PROVIDERS: PCP Family Medicine; Referring Provider Family Medicine; Visit Provider Family Medicine
DX: E04.1 Nontoxic single thyroid nodule (principal)
CPT/HCPCS: 76536